=== PATIENT | female | born 1990 | race Native Hawaiian/Other Pacific Islander ===

== ENCOUNTER 2018-03-20 11:56 | Emergency (ER) | payer BC ==
[2018-03-20 12:06] VITALS: RESP 18; TEMP 98.4
--- NOTE | 2018-03-20 12:19 | ED PDOC ---
HPI: Female Pain Time Seen by Provider: 03/20/18 12:07 Chief Complaint (Nursing): Abdominal Pain History Per: Patient Onset/Duration Of Symptoms: Days (1) Current Symptoms Are (Timing): Still Present Severity: Moderate Pain Scale Rating Of: 4 Quality Of Discomfort: Sharp Associated Symptoms: Nausea, Vomiting. denies: Diarrhea, Urinary Symptoms Additional Complaint(s): Right lower abd pain since this AM, sharp, assoc with nausea and vomiting x 1 this AM. Denies vaginal bleeding or urinary sxs. Abnormal Vaginal Bleeding: No Past Medical History Vital Signs: Last Vital Signs Temp 98.4 F 03/20/18 11:59 Pulse 72 03/20/18 11:59 Resp 18 03/20/18 11:59 BP 124/81 03/20/18 11:59 Pulse Ox 100 03/20/18 11:59 - Medical History PMH: Hypothyroidism - Family History Family History: States: Unknown Family Hx - Allergies Allergies/Adverse Reactions: Allergies Allergy/AdvReac Type Severity Reaction Status Date / Time No Known Allergies Allergy Verified 03/20/18 12:06 Review of Systems Constitutional: Negative for: Fever Gastrointestinal: Positive for: Nausea, Vomiting, Abdominal Pain. Negative for : Diarrhea Genitourinary Female: Negative for: Dysuria, Frequency, Vaginal Bleeding Musculoskeletal: Positive for: Back Pain Physical Exam - Physical Exam Appears: Positive for: Non-toxic, Uncomfortable Skin: Positive for: Normal Color, Warm, DRY Gastrointestinal/Abdominal: Positive for: Bowel Sounds, Soft, Tenderness (Mild RLQ) Back: Negative for: L CVA Tenderness, R CVA Tenderness Extremity: Positive for: Normal ROM Neurologic/Psych: Positive for: Alert, Oriented - Laboratory Results Result Diagrams: 03/20/18 12:45 03/20/18 12:45 - ECG O2 Sat by Pulse Oximetry: 100 - Progress Re-evaluation Time: 14:44 Condition: Improved (Pain improved, nontender, labs nl, US nl) Disposition - Clinical Impression Clinical Impression: Abdominal pain during , Round ligament pain - Patient ED Disposition Is Patient to be Admitted: No Counseled Patient/Family Regarding: Studies Performed, Diagnosis, Need For Followup - Disposition Disposition: Routine/Home Disposition Time: 14:45 Condition: FAIR Instructions: Round Ligament Pain Forms: [email or web address] (Frisian)
[2018-03-20 12:51] LABS: BASO % 0.5 % (0.0-2.0); EOS # 0.1 K/uL (0.0-0.7); EOS % 1.2 % (0.0-4.0); HEMOGLOBIN 13.1 g/dL (12.0-16.0); LYMPH # 1.9 K/uL (1.0-4.3); LYMPH % 23.3 % (20.0-40.0); MEAN CELL VOLUME 85.6 fl (81.0-99.0); MEAN CORPUSCULAR HGB CONC 36.2 g/dL (33.0-37.0); MEAN PLATELET VOLUME 7.6 fl (7.2-11.7); MONO # 0.4 K/uL (0.0-0.8); MONO % 4.8 % (0.0-10.0); NEUT # 5.7 K/uL (1.8-7.0); NEUT % 70.2 % (50.0-75.0); NRBC % 0.1 % (0.0-0.0); RBC 4.23 Mil/uL (3.80-5.20); RED CELL DISTRIBUTION WIDTH 13.5 % (11.5-14.5); WHITE BLOOD COUNT 8.2 K/uL (4.8-10.8)
[2018-03-20 13:16] LABS: ALB/GLOB RATIO 1.2 (1.0-2.1); ALT/SGPT 27 U/L (9-52); AST/SGOT 35 U/L (14-36); BLOOD UREA NITROGEN 7 mg/dl (7-17); CALCIUM 9.3 mg/dL (8.4-10.2); GFR NON-AFRICAN AMERICAN > 60
[2018-03-20] MEDS ORDERED: Potassium Chloride 20 mEq ER Tab PO ONE (13:58)
--- NOTE | 2018-03-20 14:30 | US ---
Date of service: 03/20/18 OB , limited Comparison: None available Technique: Real-time ultrasound was performed through the pelvis. Findings: There is a single living fetus in variable presentation. Anterior fundal placenta. The placenta is not previa. Bilateral ovaries are not visualized. There are no adnexal masses or cysts evident. Cervix length measures approximately 3.9 cm. Measurements and calculations: Fetus has a composite sonographic age of 14 weeks 6 days. This calculation is based on the biparietal diameter, head circumference, abdominal circumference, and femur length. Estimated heart rate 151 beats per min. Impression: Single living fetus with a composite sonographic age of 14 weeks 6 days. Estimated heart rate 151 beats per min. Advise an anomaly screen at 16-18 weeks gestational age.
[2018-03-20 14:57] VITALS: BP 107/60; PULSE 69; O2SAT 99
== END 2018-03-20 15:05 | disposition home or self-care (01) ==
LOC: H.ER 11:56
DX: O26.892 Other specified pregnancy related conditions, second trimester (principal); Z3A.14 14 weeks gestation of pregnancy; O99.282 Endocrine, nutritional and metabolic diseases complicating pregnancy, second trimester; E03.9 Hypothyroidism, unspecified